=== PATIENT | male | born 1960 | race Caucasian/White ===

== ENCOUNTER 2020-07-18 18:58 | Observation (INO) | payer BC, OTHER ==
[2020-07-18 19:22] LABS: #Basophils 0.1 thou/uL (0.0-0.2); #Eosinphils 0.1 thou/uL (0.0-0.7); #Lymphocytes 2.9 thou/uL (1.20-3.40); #Monocytes 0.5 thou/uL (0.11-0.59); #Neutrophils 4.7 thou/uL (1.40-6.50); %Basophils 1.1 % (0.0-1.0); %Eosinophils 1.7 % (0.0-10.0); %Monocytes 5.8 % (0.0-10.0); %Neutrophils 56.4 % (42.0-75.0); Mean Corpuscular HGB CONC 33.7 g/dL (32.0-36.0); Mean Corpuscular Hemoglobin 30.1 pg (27.0-31.0); Mean Corpuscular Volume 89.4 fL (78.0-98.0); Mean Platelet Volume 8.5 fL (7.4-10.4); Platelet Count 203 thou/uL (130-400); RBC Distribution Width 12.2 % (11.5-14.5); Red Blood Cell (RBC) Count 5.31 mill/uL (4.70-6.10); White Blood Cell (WBC) Count 8.4 thou/uL (4.8-10.8)
--- NOTE | 2020-07-18 19:34 | RAD ---
XR Chest Pa Lat STANDARD HISTORY: Left-sided chest pain COMPARISON: None FINDINGS: The heart size is upper limits of normal. The lungs are well expanded without focal areas o f consolidation, pneumothorax or pleural effusions. There are degenerative changes in the spine IMPRESSION: No radiographic evidence of acute cardiopulmonary process.
[2020-07-18 19:45] LABS: ALT (SGPT) 19 U/L (8-55); AST (SGOT) 19 U/L (5-34); Albumin 4.6 g/dL (3.5-5.0); Alkaline Phosphatase 96 U/L (40-110); Anion Gap 17 mmol/L (10-20); BUN (Urea Nitrogen) 20 mg/dL (8.4-25.7); Bilirubin, Total 0.4 mg/dL (0.2-1.2); Calc. Creatinine Clearance 0 mL/min (70-130); Calcium 8.9 mg/dL (7.8-10.44); Carbon Dioxide 27 mmol/L (22-29); Chloride 99 mmol/L (98-107); Estimated GFR-MDRD 46; Glucose 172 mg/dL (70-105); Protein, Total 7.6 g/dL (6.0-8.3); Sodium 139 mmol/L (136-145)
[2020-07-18] MEDS ORDERED: Nitroglycerin 2% Ointment 1 INCH/1 GM Packet ONE (22:44)
--- NOTE | 2020-07-18 23:16 | PDOC.HHP ---
Hospitalist HPI - History of Present Illness Chest pain History of Present Illness: Mr. Brenner is a 59 year-old male with a PMHx of HTN, HLD, hematuria who presented to the ED after an episode of chest pain. Pt reports that he was deating dinner when all of a sudden he felt a pressure in his chest that tra veled up to his head and he lost his hearing for a brief moment. Pt reports placing his hand over his chest and feeling very warm. [place] weak after the episode, but no dizziness. Denies SOB. Denies N/V/D. No changes in vision. No motor deficits. Pt also reports that 3 weeks ago while siding a house he woke up in the grass and was unsure how he got there. He did not seek medical attention at that time since he felt otherwise normal after the event. Pt denies any prior cardiac history. Denies family history of cardiac disease. In the ED vital signs: 166/107, 83, 16, 97% on RA. EKG showed NSR with non- specific t- wave changes. Initial troponin less than 0.01. H/H 16.0/47.5, WBC 8.4. BUN/Cr 20/1.55. Na 139, K 4.0. Pt received nitro paste and ASA in ED. Hospitalist ROS - Review of Systems Constitutional: denies: fever, chills, sweats, weakness, malaise, other Eyes: denies: pain, vision change, conjunctivae inflammation, eyelid inflammation, redness, other ENT: denies: ear pain, ear discharge, nose pain, nose discharge, nose congestion, mouth pain, mouth swelling, throat pain, throat swelling, other Respiratory: denies: cough, dry, shortness of breath, hemoptysis, SOB with excertion, pleuritic pain, sputum, wheezing, other Cardiovascular: reports: chest pain. denies: palpitations, orthopnea, paroxysmal noc. dyspnea, edema, light headedness, other Gastrointestinal: denies: nausea, vomiting, abdominal pain, diarrhea, constipation, melena, hematochezia, other Genitourinary: denies: dysuria, frequency, incontinence, hematuria, retention, other Musculoskeletal: denies: neck pain, shoulder pain, arm pain, back pain, hand pain, leg pain, foot pain, other Skin: denies: rash, lesions, iron, bruising, other Neurological: denies: weakness, numbness, incoordination, change in speech, confusion, seizures, other - Medication Medications: Home medications include: 1. Carvedilol 2. Chlorthalidone NKDA Hospitalist History - Past Medical History Other Medical History: Hypertension Hyperlipidemia Hematuria - Past Surgical History Other Surgical History: Tonsillectomy - Family History Family History: reports: diabetes mellitus - Social History Smoking Status: Never smoker Alcohol: reports: None Drugs: reports: none Living Situation: With Family Activity level: independent ambulation - Exam General Appearance: NAD, awake alert General - other findings: diphoretic Eye: PERRL, anicteric sclera ENT: normocephalic atraumatic, no oropharyngeal lesions, moist mucosa Neck: supple, symmetric, no JVD, no thyromegaly, no lymphadenopathy, no carotid bruit Heart: RRR, no murmur, no gallops, no rubs, normal peripheral pulses Respiratory: CTAB, no wheezes, no rales, no ronchi, normal chest expansion, no tachypnea, normal percussion Gastrointestinal: soft, non-tender, non-distended, normal bowel sounds, no palpable masses, no hepatomegaly, no splenomegaly, no bruit Extremities: no cyanosis, no clubbing, no edema Skin: normal turgor, no lesions, no rashes Neurological: cranial nerve grossly intact, normal sensation to touch, no weakness, no focal deficits, no new deficit Musculoskeletal: normal tone, normal strength, no muscle wasting Psychiatric: normal affect, normal behavior, A&O x 3 Hospitalist Results - Labs Result Diagrams: 07/18/20 19:15 07/18/20 19:15 Lab results: WBC 8.4 thou/uL (4.8-10.8) 07/18/20 19:15 Hgb 16.0 g/dL (14.0-18.0) 07/18/20 19:15 Hct 47.5 % (42.0-52.0) 07/18/20 19:15 MCV 89.4 fL (78.0-98.0) 07/18/20 19:15 Plt Count 203 thou/uL (130-400) 07/18/20 19:15 Neutrophils % 56.4 % (42.0-75.0) 07/18/20 19:15 Sodium 139 mmol/L (136-145) 07/18/20 19:15 Potassium 4.0 mmol/L (3.5-5.1) 07/18/20 19:15 Chloride 99 mmol/L (98-107) 07/18/20 19:15 Carbon Dioxide 27 mmol/L (22-29) 07/18/20 19:15 BUN 20 mg/dL (8.4-25.7) 07/18/20 19:15 Creatinine 1.55 mg/dL (0.7-1.3) H 07/18/20 19:15 Glucose 172 mg/dL (70-105) H 07/18/20 19:15 Calcium 8.9 mg/dL (7.8-10.44) 07/18/20 19:15 Total Bilirubin 0.4 mg/dL (0.2-1.2) 07/18/20 19:15 AST 19 U/L (5-34) 07/18/20 19:15 ALT 19 U/L (8-55) 07/18/20 19:15 Alkaline Phosphatase 96 U/L (40-110) 07/18/20 19:15 Creatine Kinase 167 U/L (30-200) 07/18/20 19:15 Troponin I Less than 0.010 ng/mL (< 0.028) 07/18/20 19:15 Serum Total Protein 7.6 g/dL (6.0-8.3) 07/18/20 19:15 Albumin 4.6 g/dL (3.5-5.0) 07/18/20 19:15 Hospitalist H&P A/P - Problem (1) Chest pain Code(s): R07.9 - CHEST PAIN, UNSPECIFIED Status: Acute (2) Syncope Code(s): R55 - SYNCOPE AND COLLAPSE Status: Acute (3) EVA (acute kidney injury) Code(s): N17.9 - ACUTE KIDNEY FAILURE, UNSPECIFIED Status: Acute (4) Hypertension Code(s): I10 - ESSENTIAL (PRIMARY) HYPERTENSION Status: Acute - Plan Plan: Chest Pain: 59M hx of HTN who presents with acute episode of chest pressure, sweating, and loss of hearing while eating supper. EKG with non-specific t-wave changes. Initial troponin <0.01. H/H 16.0, 47.5. No personal or family hx of cardiac disease. Received nitro paste and ASA in ED. PLAN: -ASA, nitro paste -Telemetry -Trend troponins, Mg, Phos, Ca -Stress test in AM Syncope: Pt reports recent syncopal episode 3 weeks ago while siding a house. Unwitnessed, no prodrome. Pt did not seek medical care after event. Denies any injury or fall. Reports he woke up in the grass. EKG shows NSR with non-specific t-wave changes, no QT prolongation, no delta waves, no Brugada pattern. No evidence of hypertrophy. Neuro exam wnl. Denies melena/hematochezia. H/H 16.0/47.5, WBC 8.4. PLAN: -Echocardiogram -Telemetry -Monitor electrolytes -Orthostatic vital signs EVA: BUN/Cr elevated 20/1.55. Pt denies any history of CKD, however does note history of hematuria that he did not follow-up with his PCP about. Pt encouraged to follow-up with his PCP for this. PLAN: -IVF -Trend kidney function -Avoid nephrotoxic agents Hypertension: Hx of HTN on home carvedilol 3.125 mg and chlorthalidone 25 mg. Will continue home medications. DVT Prophylaxis: SCDs FULL CODE: Pt has named his as his surrogate MDM.
[2020-07-18 23:42] LABS: Troponin I Less than 0.010 ng/mL (< 0.028)
[2020-07-18] MEDS ORDERED: Aspirin Chewable 81 MG TAB ONE (23:48)
[2020-07-19 00:10] VITALS: BMI 32.3
[2020-07-19] MEDS ORDERED: Acetaminophen 325 MG TAB PO PRN (00:15)
[2020-07-19] MEDS ORDERED: Ondansetron PF 4 MG/2 ML Vial IVP PRN (00:15)
[2020-07-19] MEDS ORDERED: Ondansetron ODT 4 MG TAB SL PRN (00:15)
[2020-07-19] MEDS: Sodium Chloride 0.9% 1,000 ML IV SCH ×2 (00:42→13:28)
[2020-07-19 01:35] LABS: Phosphorus 4.1 mg/dL (2.3-4.7)
[2020-07-19 01:40] LABS: Troponin I Less than 0.010 ng/mL (< 0.028)
[2020-07-19 05:20] LABS: #Eosinphils 0.1 thou/uL (0.0-0.7); #Lymphocytes 3.2 thou/uL (1.20-3.40); #Monocytes 0.7 thou/uL (0.11-0.59); #Neutrophils 5.6 thou/uL (1.40-6.50); %Basophils 0.5 % (0.0-1.0); %Lymphocytes 33.3 % (21.0-51.0); %Monocytes 6.9 % (0.0-10.0); %Neutrophils 58.2 % (42.0-75.0); Hemoglobin 13.9 g/dL (14.0-18.0); Mean Corpuscular HGB CONC 33.7 g/dL (32.0-36.0); Mean Corpuscular Hemoglobin 30.1 pg (27.0-31.0); Mean Corpuscular Volume 89.1 fL (78.0-98.0); Mean Platelet Volume 8.9 fL (7.4-10.4); Platelet Count 182 thou/uL (130-400); RBC Distribution Width 12.1 % (11.5-14.5); Red Blood Cell (RBC) Count 4.62 mill/uL (4.70-6.10); White Blood Cell (WBC) Count 9.7 thou/uL (4.8-10.8)
[2020-07-19 05:38] LABS: Phosphorus 3.8 mg/dL (2.3-4.7)
[2020-07-19 05:42] LABS: Troponin I Less than 0.010 ng/mL (< 0.028)
[2020-07-19 05:43] LABS: Anion Gap 13 mmol/L (10-20); BUN (Urea Nitrogen) 21 mg/dL (8.4-25.7); Calc. Creatinine Clearance 93 mL/min (70-130); Calcium 8.7 mg/dL (7.8-10.44); Carbon Dioxide 28 mmol/L (22-29); Cardiac Risk 5.9 (Less than 4.5); Chloride 101 mmol/L (98-107); Cholesterol 182 mg/dl (< 200 Desired); Estimated GFR-MDRD 58; Glucose 110 mg/dL (70-105); HDL Cholesterol 31 mg/dL (>60 Neg Risk); LDL Cholesterol, Calculated 120 mg/dL; Magnesium 2.1 mg/dL (1.6-2.6); Potassium 3.5 mmol/L (3.5-5.1); Sodium 138 mmol/L (136-145); Triglycerides 157 mg/dL (Less than 150)
[2020-07-19] MEDS ORDERED: Nitroglycerin 2% Ointment 1 INCH/1 GM Packet TOP SCH (06:00)
[2020-07-19] MEDS ORDERED: Aspirin 325 MG TAB PO SCH (08:00)
[2020-07-19 08:30] VITALS: TEMP 97.6
[2020-07-19] MEDS ORDERED: Carvedilol 3.125 MG TAB PO SCH (09:00)
[2020-07-19] MEDS ORDERED: Aspirin 81 mg Enteric Coated Tablet PO SCH (09:00)
[2020-07-19] MEDS ORDERED: Chlorthalidone 25 MG TAB PO SCH (09:00)
--- NOTE | 2020-07-19 11:41 | NM ---
NM Cardiac Stress W EF WF History: Chest pain Comparison: None. Findings: Stress and rest performed after the intravenous administration 31.2 and 10.3 mCi technetium 99m sestamibi, respectively. No scar or ischemia. Normal wall motion. Calculated ejection fraction measures 66%. Impression: Normal nuclear medicine stress test.
[2020-07-19] MEDS ORDERED: ADENOSINE 60 MG/20 ML VIAL ONE (11:45)
[2020-07-19 13:17] LABS: SARS-CoV-2 MS2 Positive; SARS-CoV-2 N Gene Negative; SARS-CoV-2 S Gene Negative; SARS-CoV-2 by NAA Not Detected (NotDetected); SARS-CoV-2 orf1ab Negative
[2020-07-19 16:38] VITALS: BP 156/88
--- NOTE | 2020-07-20 12:51 | DIS ---
DATE OF ADMISSION: 07/18/2020 DATE OF DISCHARGE: 07/19/2020 DISCHARGE DIAGNOSES: 1. Hypertensive urgency. 2. Syncope. CONSULTATIONS: None. PROCEDURES: None. BRIEF HISTORY OF PRESENT ILLNESS: This is a 59-year-old male with past medical history of hypertension, who presented to the emergency room with an intense pressure in his abdomen radiating up to his chest and his head. At that time, he felt like he had lost his hearing and he felt very weak. He placed his hand over his chest and felt very warm. BP was 166/107 on arrival to the ER. He had not been taking any antihypertensives. His EKG showed normal sinus rhythm with nonspecific T-wave changes. His troponin was negative. He was admitted for ACS rule out. HOSPITAL COURSE: 1. Hypertensive urgency: The patient's blood pressures remained controlled, ranging from 106 to 120. His blood pressure at the time of discharge went up to 156/88. He was resumed on his Coreg and chlorthalidone at discharge, but was advised to only take half the dose of his chlorthalidone 12.5 mg p.o. daily. He was advised to only take Coreg if his blood pressure is more than 140 and add the hydrochlorothiazide if blood pressure is more than 150 systolic. He did have a stress test, which was normal. His chest x-ray was normal. His troponins were negative. 2. Syncope: The patient reported an episode where he had passed out a couple weeks ago. An echo was ordered, however, due to delays in it being done, the patient elected to have this done as an outpatient. He will follow up with his PCP and get this ordered. 3. Anemia: The patient's hemoglobin was 16.9 at the time of discharge. It was 16 on admission. Consider repeat CBC to see if he is still anemic as an outpatient. DISCHARGE PHYSICAL EXAMINATION: VITAL SIGNS: Temperature 97.6, heart rate 81, respiratory rate 16, O2 saturation 97% on room air, blood pressure 156/88. GENERAL: The patient is alert, awake, and oriented x3. CVS: Regular rate and rhythm with no murmurs, rubs, or gallops. LUNGS: Clear to auscultation bilaterally. ABDOMEN: Positive bowel sounds, soft, nontender, nondistended. EXTREMITIES: No edema. PERTINENT LABORATORY DATA: CBC from 07/19; white count 9.7, hemoglobin 13.9, hematocrit 41.2, platelet count 182. BMP from 07/19; normal. Lipid panel from 07/19; triglyceride 157, cholesterol 182, LDL 128, HDL 31. TSH: 2.2. COVID PCR from 07/18: negative. IMAGING DATA: Chest x-ray from 07/18, no acute disease. Nuclear stress test from 07/19 shows normal chest. DISCHARGE MEDICATIONS: 1. Coreg 3.125 mg p.o. b.i.d. 2. Chlorthalidone 12.5 mg p.o. daily. DISCHARGE INSTRUCTIONS: The patient should consider getting an echo done with primary care doctor to evaluate syncope. Repeat CBC in a week to follow up anemia. Follow up with your PCP with regard to whether blood pressure medicine needs to be resumed or not. Job ID: [id number]
== END 2020-07-19 17:02 | disposition home or self-care (01) ==
LOC: ERS 18:58 → 2SW 22:19
PROVIDERS: ADMIT Internal Medicine; ATTEND Internal Medicine
DX: I16.0 Hypertensive urgency (principal); R42 Dizziness and giddiness; D64.9 Anemia, unspecified; I10 Essential (primary) hypertension; E78.5 Hyperlipidemia, unspecified; N17.9 Acute kidney failure, unspecified; Z20.828 Contact with and (suspected) exposure to other viral communicable diseases; Z79.899 Other long term (current) drug therapy
CPT/HCPCS: 36415; 71046; 78452; 80053; 80061; 82310; 82550; 83735; 84100; 84443; 84484; 85025; 87635; 93005; 93017; 94760; 96360; 96361; A9503; G0378; J0153; U0003